=== PATIENT | female | born 1995 | race Caucasian/White ===

== ENCOUNTER 2023-04-02 08:00 | Outpatient (CLI) | payer OTHER ==
[2023-04-02 16:04] LABS: GLUCOSE, URINE (UA) NEGATIVE (NEGATIVE); KETONES,URINE (UA) NEGATIVE (NEGATIVE); LEUKOCYTE ESTERASE, URINE NEGATIVE (NEGATIVE); NITRITE,URINE NEGATIVE (NEGATIVE); OCCULT BLOOD,URINE TRACE-INTA (NEGATIVE); PH,URINE 5.5 PH (5.0-7.5); PROTEIN,URINE 30 mg/dL (NEGATIVE); UROBILINOGEN,URINE 1 (NORMAL) E.U./dL (NORMAL)
[2023-04-02 16:07] LABS: BILIRUBIN,URINE NEGATIVE (NEGATIVE); CLARITY,URINE CLOUDY (CLEAR); ICTOTEST,URINE NEGATIVE
[2023-04-02 16:25] LABS: AMORPHOUS SEDIMENT,UR Marked /LPF; BACTERIA,URINE None Seen /HPF (None Seen); RBC,URINE None Seen /HPF (0-5); SQUAMOUS EPITHELIAL CELL,UR RARE Squamous (<= Few); WBC,URINE 0-3 /HPF (0-5)
== END 2023-04-02 23:59 | disposition home or self-care (01) ==
LOC: LAB.WC 08:00
PROVIDERS: ATTEND Nurse Practitioner
DX: Z34.90 Encounter for supervision of normal pregnancy, unspecified, unspecified trimester (principal)
CPT/HCPCS: 81001; 87086

== ENCOUNTER 2023-04-19 12:26 | Outpatient (CLI) | payer OTHER ==
[2023-04-19 12:58] LABS: BASOPHILS # (AUTO) 0.1 10^3/uL (0.0-0.1); BASOPHILS % (AUTO) 0.5 %; EOSINOPHILS # (AUTO) 0.4 10^3/uL (0.0-0.7); EOSINOPHILS % (AUTO) 3.9 %; HCT - HEMATOCRIT 38.1 % (37.0-47.0); LYMPHOCYTES # (AUTO) 1.9 10^3/uL (1.5-3.5); LYMPHOCYTES % (AUTO) 18.5 %; MEAN CORPUSCULAR HGB CONC 34.1 g/dL (32.0-36.0); MEAN CORPUSCULAR VOLUME 84.9 fL (81.0-99.0); MEAN PLATELET VOLUME 12.4 fL (7.9-10.8); MONOCYTES # (AUTO) 0.5 10^3/uL (0.0-1.0); MONOCYTES % (AUTO) 4.7 %; NEUTROPHILS # (AUTO) 7.5 10^3/uL (1.5-6.6); PLT - PLATELET COUNT 179 10^3/uL (130-450); RED BLOOD COUNT 4.49 10^6/uL (4.20-5.40); RED CELL DISTRIBUTION WIDTH 12.7 % (12.0-15.0); WHITE BLOOD COUNT 10.5 x10^3/uL (4.8-10.8)
[2023-04-20 03:09] LABS: HCV AB Non Reactive (Non Reactive)
[2023-04-20 05:12] LABS: HIV SCREEN 4TH GENERATION Non Reactive (Non Reactive)
[2023-04-20 06:11] LABS: HBsAG SCREEN Negative (Negative); RPR Non Reactive (Non Reactive)
[2023-04-20 09:09] LABS: VARICELLA-ZOSTER AB IGG 3399 index (Immune >165)
== END 2023-04-19 12:27 | disposition home or self-care (01) ==
LOC: LAB 12:26
PROVIDERS: ATTEND Nurse Practitioner
DX: Z34.90 Encounter for supervision of normal pregnancy, unspecified, unspecified trimester (principal)
CPT/HCPCS: 36415; 85025; 86592; 86762; 86787; 86803; 86850; 86900; 86901; 87340; 87389

== ENCOUNTER 2023-04-21 08:00 | Outpatient (CLI) | payer OTHER ==
[2023-04-21 21:15] LABS: CHLAMYDIA TRACHOMATIS DNA NEGATIVE (NEGATIVE); NEISSERIA GONORRHOEAE DNA NEGATIVE (NEGATIVE); TRICHOMONAS VAGINALIS DNA NEGATIVE (NEGATIVE)
== END 2023-04-21 23:59 | disposition home or self-care (01) ==
LOC: LAB.WC 08:00
PROVIDERS: ATTEND Obstetrics & Gynecology
DX: Z11.3 Encounter for screening for infections with a predominantly sexual mode of transmission (principal)
CPT/HCPCS: 87491; 87591; 87661

== ENCOUNTER 2023-04-22 19:45 | Outpatient (CLI) | payer OTHER ==
--- NOTE | 2023-04-23 22:40 | Ultrasound Report ---
PROCEDURE: OB First Trimester w/TV INDICATIONS: POSITIVE TEST OUTSIDE/PRIOR DATING DATA: Last menstrual period (LMP): 02/02/2023. LMP-based estimated date of delivery (LIT): 11/09/2023. First dating scan (date and location): 04/22/2023. Estimated date of delivery (LIT) from first dating scan: 11/08/2023. TECHNIQUE: Real-time scanning was performed of the fetus and maternal pelvic organs, with image documentation. Endovaginal scanning was also performed to better visualize the fetus and maternal ovaries. COMPARISON: None. FINDINGS: There is a single living intrauterine gestation with estimated sonographic gestational age of approximately 11 weeks and 3 days based off crown-rump length measurement of approximately 4.6 cm . Embryo is visualized within the gestational sac as well as a normal yolk sac. Heart rate: 178 bpm. Other: No perigestational fluid collection. Measurement variability in dating: +/- 4 weeks by LMP, +/- 7 days by mean sac diameter (use before 6 weeks gestation if crown-rump length not able to be measured), +/- 5 days by crown-rump length (6-12 weeks gestation). Maternal organs: Ovaries appear within normal limits. Maternal cervix measures 3.1 cm in length. IMPRESSION: Single living intrauterine gestation with estimated sonographic gestational age of approximately 11 w eeks and 3 days based off crown-rump length measurement. Estimated date of delivery is approximately 11/08/2023 which measures concordantly with estimated date of delivery by last menstrual period of bethany roximately 11/09/2023. Recommend follow-up imaging with routine second trimester anatomy screening survey. Reviewed by: Krishna Ghosh MD on 04/23/2023 10:39 PM PDT Approved by: Krishna Ghosh MD on 04/23/2023 10:39 PM PDT Station ID: [id number]
== END 2023-04-22 19:46 | disposition home or self-care (01) ==
LOC: DI 19:45
PROVIDERS: ATTEND Nurse Practitioner
DX: Z34.91 Encounter for supervision of normal pregnancy, unspecified, first trimester (principal)

== ENCOUNTER 2023-05-19 08:00 | Outpatient (CLI) | payer OTHER ==
[2023-05-19 16:16] LABS: BILIRUBIN,URINE NEGATIVE (NEGATIVE); GLUCOSE, URINE (UA) NEGATIVE (NEGATIVE); KETONES,URINE (UA) NEGATIVE (NEGATIVE); LEUKOCYTE ESTERASE, URINE NEGATIVE (NEGATIVE); NITRITE,URINE NEGATIVE (NEGATIVE); OCCULT BLOOD,URINE NEGATIVE (NEGATIVE); PH,URINE 6.5 PH (5.0-7.5); PROTEIN,URINE NEGATIVE (NEGATIVE); UROBILINOGEN,URINE 0.2 (NORMAL) E.U./dL (NORMAL)
[2023-05-19 16:24] LABS: BACTERIA,URINE None Seen /HPF (None Seen); CLARITY,URINE CLEAR (CLEAR); RBC,URINE None Seen /HPF (0-5); SQUAMOUS EPITHELIAL CELL,UR NONE SEEN (<= Few); WBC,URINE 0-3 /HPF (0-5)
== END 2023-05-19 23:59 | disposition home or self-care (01) ==
LOC: LAB.WC 08:00
PROVIDERS: ATTEND Obstetrics & Gynecology
DX: R30.0 Dysuria (principal)
CPT/HCPCS: 81001; 87086

== ENCOUNTER 2023-06-25 14:52 | Outpatient (CLI) | payer OTHER ==
--- NOTE | 2023-06-27 09:30 | Ultrasound Report ---
PROCEDURE: OB Detailed Eval INDICATIONS: SUPERVISON OF HIGH RISK OUTSIDE/PRIOR DATING DATA: Last menstrual period (LMP): 02/02/2023. LMP-based estimated date of delivery (LIT): 11/09/2023. First dating scan (date and location): 04/22/2023. Estimated date of delivery (LIT) from first dating scan: 11/08/2023. The below data below was generated using the ultrasound LIT of 11/08/2023 TECHNIQUE: Real-time scanning was performed of the fetus, with image documentation and biometric measurements. Endovaginal scanning: Not performed COMPARISON: 04/22/2023 FINDINGS: General: A single living intrauterine gestation is present. Presentation: Breech Placenta: Placental position is posterior, without previa. Amniotic fluid index: 14.2 cm, within normal limits for gestational age. heart rate: 144 beats per minute. Maternal cervical canal: Within normal limits biometrics: Biparietal diameter: 4.4 cm, 19 weeks 3 days Head circumference: 17.6 cm, 20 weeks 1 day Abdominal circumference: 15.6 cm, 20 weeks 1 day Femur length: 3.4 cm, 20 weeks 6 days Estimated gestational age from initial scan: 20 weeks 3 days Composite gestational age from present scan: 19 weeks 6 days Estimated weight and percentile: 372 g, 61.4% Measurement variability in biometric dating: +/- 10 days from 12-20 weeks gestation, +/- 2 weeks from 20-30 weeks gestation, +/- 3 weeks at 30 weeks gestation or later. Anatomic survey: Neuro: Ventricles are normal at less than 10 mm. Cisterna magna is normal at 3-11 mm. Cerebellum i s normal in size and morphology. Nuchal skin fold: Normal at less than 6 mm between 14 and 20 weeks gestational age. Face: Nose and lips, facial profile are normal. Spine: No evidence for spina bifida. Heart: 4-chambered heart is present, with normal ventricular outflow tracts. Diaphragm: Diaphragm is intact. Stomach: Left-sided stomach is present. Kidneys: No hydronephrosis. Normal is less than 5 mm in 2nd trimester, less than 7 mm in 3rd trimester. Cord: 3 vessel cord has orthotopic insertion. Bladder: Normal in size. Extremities: All 4 extremities are visualized. IMPRESSION: 1. Living second trimester intrauterine with no sonographic evidence of complications. Curr ent ultrasound age is 4 days less than clinical age based on initial ultrasound. 2. Normal second trimester anatomy survey. Reviewed by: Osman Roberson MD on 06/27/2023 9:28 AM PDT Approved by: Osman Roberson MD on 06/27/2023 9:28 AM PDT Station ID: [id number]
== END 2023-06-25 14:53 | disposition home or self-care (01) ==
LOC: DI 14:52
PROVIDERS: ATTEND Obstetrics & Gynecology
DX: O09.92 Supervision of high risk pregnancy, unspecified, second trimester (principal); Z3A.19 19 weeks gestation of pregnancy

== ENCOUNTER 2023-07-09 08:00 | Outpatient (CLI) | payer OTHER | END 2023-07-09 23:59 | disposition home or self-care (01) | LOC: LAB.N 08:00 | PROVIDERS: ATTEND Physician Assistant Medical | DX: J02.9 Acute pharyngitis, unspecified (principal) | CPT/HCPCS: 87070 ==

== ENCOUNTER 2023-07-29 18:37 | Emergency (ER) | payer OTHER ==
[2023-07-29 18:45] VITALS: BP 121/74; O2SAT 99
--- NOTE | 2023-07-29 19:12 | ED Physician Documentation ---
History of Present Illness - Stated complaint Stated Complaint: L LEG NUMB - Chief complaint Chief Complaint: Ext Problem - Additonal information Additional information: 28-year-old female presents emergency department for evaluation of acute left leg cramping. She reports that yesterday evening she began to have a sensation of tightness in her posterior calf much like a charley horse however went away after a while. She had a similar sensation this morning and this afternoon after taking a nap. She reports that her leg felt numb. Patient is currently 25 weeks G2, P1. Last was complicated by preeclampsia and possibly mild help syndrome. Patient denies chest pain or shortness of air. She did have a long car travel recently. She has no leg swelling. Is being followed by Dr. Andres. Patient states she spoke to the on-call OB provider who advised her to come to the ER for ultrasound imaging Review of Systems Constitutional: denies: Fever, Chills Cardiac: reports: Reviewed and negative. denies: Pedal edema Respiratory: reports: Reviewed and negative Musculoskeletal: reports: Extremity pain Neurologic: reports: Reviewed and negative PD ED PE NORMAL - General General: Alert and oriented X 3, No acute distress, Well developed/nourished - HEENT HEENT: Atraumatic - Neck Neck: Supple, no meningeal sign - Cardiac Cardiac: RRR, No murmur - Respiratory Respiratory: No respiratory distress, Clear bilaterally - Abdomen Abdomen: Normal bowel sounds, Soft - Extremities Extremities: No edema. No: No calf tenderness / cord (Very mild left posterior calf pain tenderness with palpation. No swelling or erythema. No swelling of the ankles. 2+ DP pulse. 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 Eye Opening: Spontaneous Motor: Obeys Commands Verbal: Oriented GCS Score: 15 Results - Vitals Vitals: Vital Signs - 24 hr 07/29/23 18:38 Temperature 36.6 C Heart Rate 80 Respiratory 17 Rate Blood Pressure 121/74 O2 Saturation 99 Oxygen O2 Source Room air - Rads (name of study) US DVT left leg Relevant Findings:: Final report received (negative for DVT) PD Medical Decision Making - ED course Complexity details: reviewed results, d/w patient ED course: 28-year-old female here for evaluation of acute left leg cramping she noticed last night also reported some numbness in the leg when she woke up this morning. She is about 25 weeks being followed by our OB Dr. Andres. No chest pain or shortness of air. Here the emergency department she appears remarkably well. Vital signs were normal for without findings of hypertension. Her exam revealed no leg swelling or erythema or any findings consistent with infection. An ultrasound was completed that showed no evidence of DVT. Patient denies symptoms of cramping while here in the ER. She is discharged home in stable condition. Continue to follow-up with OB. Did recommend the use of Tylenol for any leg discomfort and consideration of warm compress should she develop symptoms again. Departure - Departure Disposition: Home, Self Care Clinical Impression: Cramps of left lower extremity Condition: Stable Record reviewed to determine appropriate education?: Yes Comments: Tamiko the ultrasound did not show any blood clots in your left leg. Some cramping can be very common in . It is advised that you stay well- hydrated. Drinking some soup or broth can often help. While here in the emergency department your vital signs were normal for . The baby had good movement and a heart rate of about 155. Continue to follow closely with your OB. Return to the ER for any new or worsening symptoms. Forms: PCP List
--- NOTE | 2023-07-29 20:44 | Ultrasound Report ---
PROCEDURE: Duplex Ext Veins Left INDICATIONS: numbness, calf pain; r/o dvt TECHNIQUE: Real-time imaging, as well as color and pulse Doppler interrogation, were performed of the lower extr emity deep veins from the inguinal ligament to the popliteal fossa. Attempted visualization of the ca lf veins was performed. COMPARISON: None. FINDINGS: The deep veins are normally compressible, and free of intraluminal thrombus. Color and pu lse Doppler demonstrate normal phasic intraluminal flow. There is normal augmentation response to di stal compression maneuver. heart rate 152 bpm. IMPRESSION: No lower extremity DVT. Reviewed by: Deuce Bates MD on 07/29/2023 8:43 PM PST Approved by: Deuce Bates MD on 07/29/2023 8:43 PM PST Station ID: [id number]
== END 2023-07-29 20:13 | disposition home or self-care (01) ==
LOC: ED 18:37
DX: O99.891 Other specified diseases and conditions complicating pregnancy (principal); R25.2 Cramp and spasm; Z3A.25 25 weeks gestation of pregnancy
CPT/HCPCS: 99283; 99284

== ENCOUNTER 2023-08-05 12:58 | Outpatient (CLI) | payer OTHER | END 2023-08-05 12:59 | disposition home or self-care (01) | LOC: LAB 12:58 | PROVIDERS: ATTEND Obstetrics & Gynecology | DX: O09.92 Supervision of high risk pregnancy, unspecified, second trimester (principal) | CPT/HCPCS: 36415; 82950 ==

== ENCOUNTER 2023-08-12 08:37 | Outpatient (CLI) | payer OTHER ==
[2023-08-12 09:11] LABS: GTT GLUCOSE,FASTING 85 mg/dL (74-109)
[2023-08-12 15:18] LABS: HCT - HEMATOCRIT 37.6 % (37.0-47.0); HGB - HEMOGLOBIN 12.5 g/dL (12.0-16.0); MEAN CORPUSCULAR HEMOGLOBIN 29.7 pg (27.0-31.0); MEAN CORPUSCULAR HGB CONC 33.2 g/dL (32.0-36.0); MEAN CORPUSCULAR VOLUME 89.3 fL (81.0-99.0); RED BLOOD COUNT 4.21 10^6/uL (4.20-5.40); RED CELL DISTRIBUTION WIDTH 13.1 % (12.0-15.0); WHITE BLOOD COUNT 16.5 x10^3/uL (4.8-10.8)
[2023-08-12 15:49] LABS: CREATININE,URINE 72.1 mg/dL; PROTEIN/CREATININE RATIO,URINE 0.2 (<=0.2)
== END 2023-08-12 08:38 | disposition home or self-care (01) ==
LOC: LAB 08:37
PROVIDERS: ATTEND Nurse Practitioner
DX: O99.810 Abnormal glucose complicating pregnancy (principal); O09.92 Supervision of high risk pregnancy, unspecified, second trimester
CPT/HCPCS: 36415; 82570; 82951; 82952; 84156; 85027

== ENCOUNTER 2023-09-09 08:00 | Outpatient (CLI) | payer OTHER ==
[2023-09-09 20:09] LABS: BACTERIAL VAGINOSIS DNA POSITIVE (NEGATIVE); CANDIDA GLABRATA DNA NEGATIVE (NEGATIVE); CANDIDA GROUP DNA NEGATIVE (NEGATIVE); CANDIDA KRUSEI DNA NEGATIVE (NEGATIVE); TRICHOMONAS VAGINALIS DNA NEGATIVE (NEGATIVE)
== END 2023-09-09 23:59 | disposition home or self-care (01) ==
LOC: LAB.WC 08:00
PROVIDERS: ATTEND Obstetrics & Gynecology
DX: N89.8 Other specified noninflammatory disorders of vagina (principal)
CPT/HCPCS: 81514

== ENCOUNTER 2023-09-20 15:20 | Outpatient (CLI) | payer OTHER ==
[2023-09-20 15:52] LABS: HCT - HEMATOCRIT 38.7 % (37.0-47.0); HGB - HEMOGLOBIN 12.7 g/dL (12.0-16.0); MEAN CORPUSCULAR HEMOGLOBIN 28.9 pg (27.0-31.0); MEAN CORPUSCULAR HGB CONC 32.8 g/dL (32.0-36.0); MEAN CORPUSCULAR VOLUME 88.2 fL (81.0-99.0); MEAN PLATELET VOLUME 13.3 fL (7.9-10.8); RED BLOOD COUNT 4.39 10^6/uL (4.20-5.40); RED CELL DISTRIBUTION WIDTH 12.9 % (12.0-15.0)
[2023-09-20 17:28] LABS: CREATININE,URINE 131.7 mg/dL; PROTEIN/CREATININE RATIO,URINE 0.1 (<=0.2)
== END 2023-09-20 15:21 | disposition home or self-care (01) ==
LOC: LAB 15:20
PROVIDERS: ATTEND Obstetrics & Gynecology
DX: O09.893 Supervision of other high risk pregnancies, third trimester (principal); Z87.59 Personal history of other complications of pregnancy, childbirth and the puerperium
CPT/HCPCS: 36415; 82570; 84156; 85027

== ENCOUNTER 2023-09-22 18:27 | Outpatient (CLI) | payer OTHER ==
--- NOTE | 2023-09-23 11:23 | Ultrasound Report ---
PROCEDURE: OB Follow up INDICATIONS: POOR GROWTH OUTSIDE/PRIOR DATING DATA: Last menstrual period (LMP): 02/02/2023. LMP-based estimated date of delivery (LIT): 11/09/2023. First dating scan (date and location): 04/22/2023. [facility]. Estimated date of delivery (LIT) from first dating scan: 11/08/2023. The below data below was generated using the ultrasound LIT of 11/08/2023 TECHNIQUE: Real-time scanning was performed of the fetus, with image documentation and biometric measurements. Endovaginal scanning: Not performed. COMPARISON: OB ultrasound on July 29, 2023 FINDINGS: General: A single living intrauterine gestation is present. Presentation: Vertex Placenta: Placental position is posterior, without previa. Amniotic fluid index: 12.5 cm, within normal limits for gestational age. heart rate: 137 beats per minute. Maternal cervical canal: 3.7 cm long; normal length is 2.5 cm or more. biometrics: Biparietal diameter: 8.1 cm, 32 weeks and 4 days, 23.3% Head circumference: 31.3 cm, 35 weeks and 1 day, 61.6% Abdominal circumference: 29.45 cm, 33 weeks and 3 days, 56.5% Femur length: 6.37 cm, 32 weeks and 6 days, 28.9% Estimated gestational age from initial scan: 33 weeks and 2 days Composite gestational age from present scan: 33 weeks and 4 days Estimated weight and percentile: 2180.5 g, 44% Measurement variability in biometric dating: +/- 10 days from 12-20 weeks gestation, +/- 2 weeks from 20-30 weeks gestation, +/- 3 weeks at 30 weeks gestation or more. Other: Bilateral ovaries are unremarkable. IMPRESSION: 1.Single living intrauterine gestation in vertex presentation. Estimated gestational age from today's scan is 33 weeks and 4 days. 2.Estimated weight is at 44th percentile. 3.REY is 12.5 cm. Reviewed by: Radha Ledesma MD on 09/23/2023 11:22 AM PST Approved by: Radha Ledesma MD on 09/23/2023 11:22 AM PST Station ID: [id number]
== END 2023-09-22 18:28 | disposition home or self-care (01) ==
LOC: DI 18:27
PROVIDERS: ATTEND Obstetrics & Gynecology
DX: O36.5930 Maternal care for other known or suspected poor fetal growth, third trimester, not applicable or unspecified (principal); O09.893 Supervision of other high risk pregnancies, third trimester; Z3A.33 33 weeks gestation of pregnancy

== ENCOUNTER 2023-10-06 11:22 | Outpatient (CLI) | payer OTHER ==
[2023-10-06 11:34] LABS: HCT - HEMATOCRIT 38.4 % (37.0-47.0); HGB - HEMOGLOBIN 12.8 g/dL (12.0-16.0); MEAN CORPUSCULAR HEMOGLOBIN 29.2 pg (27.0-31.0); MEAN CORPUSCULAR HGB CONC 33.3 g/dL (32.0-36.0); MEAN CORPUSCULAR VOLUME 87.7 fL (81.0-99.0); MEAN PLATELET VOLUME 13.4 fL (7.9-10.8); RED BLOOD COUNT 4.38 10^6/uL (4.20-5.40); RED CELL DISTRIBUTION WIDTH 12.5 % (12.0-15.0); WHITE BLOOD COUNT 17.4 x10^3/uL (4.8-10.8)
[2023-10-06 11:45] LABS: CREATININE,URINE 246.8 mg/dL; PROTEIN/CREATININE RATIO,URINE 0.1 (<=0.2)
[2023-10-06 11:45] LABS: ALBUMIN 3.6 g/dL (3.2-5.5); ALBUMIN/GLOBULIN RATIO 1.2 (1.0-2.2); BILIRUBIN,TOTAL 0.4 mg/dL (0.2-1.0); CREATININE 0.6 mg/dL (0.6-1.3); TOTAL PROTEIN 6.5 g/dL (6.4-8.9)
== END 2023-10-06 11:23 | disposition home or self-care (01) ==
LOC: LAB 11:22
PROVIDERS: ATTEND Nurse Practitioner
DX: Z87.59 Personal history of other complications of pregnancy, childbirth and the puerperium (principal)
CPT/HCPCS: 36415; 80053; 82570; 84156; 85027

== ENCOUNTER 2023-10-12 08:00 | Outpatient (CLI) | payer OTHER ==
[2023-10-12 17:12] LABS: PROTEIN/CREATININE RATIO,URINE 0.2 (<=0.2)
== END 2023-10-12 23:59 | disposition home or self-care (01) ==
LOC: LAB.WC 08:00
PROVIDERS: ATTEND Nurse Practitioner
DX: O09.893 Supervision of other high risk pregnancies, third trimester (principal); Z87.59 Personal history of other complications of pregnancy, childbirth and the puerperium; Z36.85 Encounter for antenatal screening for Streptococcus B
CPT/HCPCS: 36415; 82570; 84156; 85025; 87081; 87797

== ENCOUNTER 2023-10-12 10:55 | Outpatient (CLI) | payer OTHER ==
[2023-10-12 11:10] LABS: BASOPHILS # (AUTO) 0.1 10^3/uL (0.0-0.1); BASOPHILS % (AUTO) 0.3 %; EOSINOPHILS # (AUTO) 0.1 10^3/uL (0.0-0.7); EOSINOPHILS % (AUTO) 0.8 %; HCT - HEMATOCRIT 38.2 % (37.0-47.0); HGB - HEMOGLOBIN 12.4 g/dL (12.0-16.0); LYMPHOCYTES # (AUTO) 1.9 10^3/uL (1.5-3.5); LYMPHOCYTES % (AUTO) 12.6 %; MEAN CORPUSCULAR HEMOGLOBIN 28.6 pg (27.0-31.0); MEAN CORPUSCULAR HGB CONC 32.5 g/dL (32.0-36.0); MEAN PLATELET VOLUME 13.3 fL (7.9-10.8); MONOCYTES # (AUTO) 0.6 10^3/uL (0.0-1.0); MONOCYTES % (AUTO) 4.1 %; NEUTROPHILS # (AUTO) 12.2 10^3/uL (1.5-6.6); NEUTROPHILS % (AUTO) 81.5 %; PLT - PLATELET COUNT 119 10^3/uL (130-450); RED BLOOD COUNT 4.34 10^6/uL (4.20-5.40); RED CELL DISTRIBUTION WIDTH 12.8 % (12.0-15.0)
[2023-10-12 11:42] LABS: DIFFERENTIAL COMMENT MANUAL=AUTO DIFF; PLATELET ESTIMATE, MANUAL DECREASED (<130,000) (NORMAL); PLATELET MORPHOLOGY NORMAL APPEARANCE (NORMAL); RBC MORPHOLOGY (MULTIPLE) NORMAL APPEARANCE (NORMAL)
== END 2023-10-12 10:56 | disposition home or self-care (01) ==
LOC: LAB 10:55
PROVIDERS: ATTEND Nurse Practitioner
DX: O09.893 Supervision of other high risk pregnancies, third trimester (principal); Z87.59 Personal history of other complications of pregnancy, childbirth and the puerperium; Z36.85 Encounter for antenatal screening for Streptococcus B
CPT/HCPCS: 36415; 85025; 87081; 87797

== ENCOUNTER 2023-10-15 10:04 | Outpatient (CLI) | payer OTHER ==
[2023-10-15 10:38] VITALS: BP 122/86
--- NOTE | 2023-10-17 14:34 | PROCEDURE REPORT ---
- HPI Diagnosis/Indication for NST: Intrauterine growth restriction (suspected) Current EDU 11/09/23 Gestation 36 Weeks and 3 Days 2 Para 1 Vital Signs Temperature 98.2 F 10/15/23 10:33 Heart Rate 93 10/15/23 10:33 Respiratory Rate 16 10/15/23 10:33 Blood Pressure 122/86 H 10/15/23 10:33 Temperature 98.2 F 10/15/23 10:33 Heart Rate 93 10/15/23 10:33 Respiratory Rate 16 10/15/23 10:33 Blood Pressure 122/86 H 10/15/23 10:33 O2 Saturation If not protocol: Oxygen Flow, liters/minute - NST Procedure NST Procedure Start Date 10/15/23 Start Time 10:17 Stop Time 10:40 Vibroacoustic Stimulation Used No Patient States Movement Yes 36 weeks. here for first nst for concerns with growth. NST reviewed in real time. baseline normal. moderate variability. + acels and no decels. - Results and Plan Findings/Impression: reactive nst. Plan: as previously scheduled.
== END 2023-10-15 11:08 | disposition home or self-care (01) ==
LOC: WFO 10:04 → FBP 10:18 → WFO 11:08
PROVIDERS: ATTEND Obstetrics & Gynecology
DX: O36.5930 Maternal care for other known or suspected poor fetal growth, third trimester, not applicable or unspecified (principal); O09.893 Supervision of other high risk pregnancies, third trimester; Z87.59 Personal history of other complications of pregnancy, childbirth and the puerperium; Z3A.36 36 weeks gestation of pregnancy
CPT/HCPCS: 59025

== ENCOUNTER 2023-10-15 11:40 | Outpatient (CLI) | payer OTHER ==
--- NOTE | 2023-10-15 14:39 | Ultrasound Report ---
PROCEDURE: OB Follow up INDICATIONS: HX OF PREEECLAMPSIA OUTSIDE/PRIOR DATING DATA: Last menstrual period (LMP): 02/02/2023. LMP-based estimated date of delivery (LIT): 11/09/2023. First dating scan (date and location): [facility]/2023, [facility] Estimated date of delivery (LIT) from first dating scan: 11/08/2023. TECHNIQUE: Real-time scanning was performed of the fetus, with image documentation and biometric measurements. Endovaginal scanning: Not performed. COMPARISON: None. FINDINGS: General: A single living intrauterine gestation is present. Presentation: Vertex Placenta: Placental position is posterior, without previa. Amniotic fluid index: 12.5 cm, within normal limits for gestational age. heart rate: 137 beats per minute. Maternal cervical canal: 3.7 cm long; normal length is 2.5 cm or more. biometrics: Biparietal diameter: 8.1 cm, 32 weeks 4 days, 23.3% Head circumference: 31.33 cm, 35 weeks 1 day, 61.1% Abdominal circumference: 29.5 cm, 33 weeks, 3 days, 56.5% Femur length: 6.37 cm, 32 weeks 6 days, 28.9% Estimated gestational age from initial scan: 33 weeks 2 days Composite gestational age from present scan: 33 weeks 4 days Estimated weight and percentile: 2180.5 g, 44% Measurement variability in biometric dating: +/- 10 days from 12-20 weeks gestation, +/- 2 weeks from 20-30 weeks gestation, +/- 3 weeks at 30 weeks gestation or more. Other: Not applicable. IMPRESSION: 1. Single live intrauterine gestation with a composite gestational age of 33 weeks, 4 days which is c oncordant with dates by initial scan. 2. Appropriate growth with estimated weight percentile 44%. Reviewed by: Alyssa Doyle MD on 10/15/2023 2:38 PM PST Approved by: Alyssa Doyle MD on 10/15/2023 2:38 PM PST Station ID: [id number]
== END 2023-10-15 11:41 | disposition home or self-care (01) ==
LOC: DI 11:40
PROVIDERS: ATTEND Nurse Practitioner
DX: Z87.59 Personal history of other complications of pregnancy, childbirth and the puerperium (principal)

== ENCOUNTER 2023-10-19 12:07 | Outpatient (CLI) | payer OTHER ==
[2023-10-19 12:30] LABS: BASOPHILS % (AUTO) 0.3 %; EOSINOPHILS % (AUTO) 0.7 %; HCT - HEMATOCRIT 39.3 % (37.0-47.0); HGB - HEMOGLOBIN 12.8 g/dL (12.0-16.0); LYMPHOCYTES % (AUTO) 13.8 %; MEAN CORPUSCULAR HEMOGLOBIN 28.6 pg (27.0-31.0); MEAN CORPUSCULAR HGB CONC 32.6 g/dL (32.0-36.0); MEAN CORPUSCULAR VOLUME 87.7 fL (81.0-99.0); MEAN PLATELET VOLUME 13.6 fL (7.9-10.8); MONOCYTES % (AUTO) 4.1 %; NEUTROPHILS % (AUTO) 80.5 %; PLT - PLATELET COUNT 120 10^3/uL (130-450); RED BLOOD COUNT 4.48 10^6/uL (4.20-5.40); WHITE BLOOD COUNT 15.7 x10^3/uL (4.8-10.8)
[2023-10-19 12:35] LABS: ABNORMAL LYMPHS % (MANUAL) 0 %
[2023-10-19 13:28] LABS: BAND NEUTROPHILS % (MANUAL) 3 %; DIFFERENTIAL COMMENT MANUAL DIFFERENTIAL; EOSINOPHILS # (MANUAL) 0.2 10^3/uL (0-0.7); LYMPHOCYTES # (MANUAL) 2.4 10^3/uL (1.5-3.5); LYMPHOCYTES % (MANUAL) 11 %; MONOCYTES # (MANUAL) 0.5 10^3/uL (0.0-1.0); NEUTROPHILS # (MANUAL) 12.7 10^3/uL (1.5-6.6); REACTIVE LYMPHS % (MANUAL) 4 %
== END 2023-10-19 12:08 | disposition home or self-care (01) ==
LOC: LAB 12:07
PROVIDERS: ATTEND Nurse Practitioner
DX: Z87.59 Personal history of other complications of pregnancy, childbirth and the puerperium (principal)
CPT/HCPCS: 36415; 85025

== ENCOUNTER 2023-10-20 09:58 | Outpatient (CLI) | payer OTHER ==
[2023-10-20 10:16] VITALS: BP 131/80
--- NOTE | 2023-10-20 15:13 | PROCEDURE REPORT ---
- HPI Diagnosis/Indication for NST: Intrauterine growth restriction Current EDU 11/09/23 Gestation 37 Weeks and 1 Days 2 Para 1 Vital Signs Temperature 98.1 F 10/20/23 10:09 Heart Rate 90 10/20/23 10:09 Respiratory Rate 14 10/20/23 10:09 Blood Pressure 131/80 H 10/20/23 10:09 Temperature 98.1 F 10/20/23 10:09 Heart Rate 90 10/20/23 10:09 Respiratory Rate 14 10/20/23 10:09 Blood Pressure 131/80 H 10/20/23 10:09 O2 Saturation If not protocol: Oxygen Flow, liters/minute - NST Procedure NST Procedure Start Date 10/20/23 Start Time 10:03 Stop Time 10:44 Vibroacoustic Stimulation Used No NSt reviewed in real time. normal baseline. moderate variability. + acels. no decels. - Results and Plan Findings/Impression: reactive NST Plan: as scheduled.
== END 2023-10-20 10:50 | disposition home or self-care (01) ==
LOC: WFO 09:58 → FBP 10:00 → WFO 10:50
PROVIDERS: ATTEND Obstetrics & Gynecology
DX: O36.5930 Maternal care for other known or suspected poor fetal growth, third trimester, not applicable or unspecified (principal); O09.893 Supervision of other high risk pregnancies, third trimester; Z3A.37 37 weeks gestation of pregnancy
CPT/HCPCS: 59025

== ENCOUNTER 2023-10-22 12:36 | Outpatient (CLI) | payer OTHER ==
[2023-10-22 13:15] LABS: BASOPHILS # (AUTO) 0.1 10^3/uL (0.0-0.1); BASOPHILS % (AUTO) 0.3 %; EOSINOPHILS # (AUTO) 0.1 10^3/uL (0.0-0.7); EOSINOPHILS % (AUTO) 0.8 %; HCT - HEMATOCRIT 37.7 % (37.0-47.0); HGB - HEMOGLOBIN 12.4 g/dL (12.0-16.0); LYMPHOCYTES # (AUTO) 2.1 10^3/uL (1.5-3.5); LYMPHOCYTES % (AUTO) 14.3 %; MEAN CORPUSCULAR HEMOGLOBIN 28.9 pg (27.0-31.0); MEAN CORPUSCULAR HGB CONC 32.9 g/dL (32.0-36.0); MEAN CORPUSCULAR VOLUME 87.9 fL (81.0-99.0); MEAN PLATELET VOLUME 13.6 fL (7.9-10.8); MONOCYTES # (AUTO) 0.7 10^3/uL (0.0-1.0); MONOCYTES % (AUTO) 4.5 %; NEUTROPHILS # (AUTO) 11.6 10^3/uL (1.5-6.6); NEUTROPHILS % (AUTO) 79.6 %; PLT - PLATELET COUNT 121 10^3/uL (130-450); RED BLOOD COUNT 4.29 10^6/uL (4.20-5.40); RED CELL DISTRIBUTION WIDTH 13.1 % (12.0-15.0); WHITE BLOOD COUNT 14.6 x10^3/uL (4.8-10.8)
--- NOTE | 2023-10-23 09:10 | Ultrasound Report ---
PROCEDURE: OB Limited INDICATIONS: HX OF PREECLAMPSIA OUTSIDE/PRIOR DATING DATA: Last menstrual period (LMP): 02/02/2023. LMP-based estimated date of delivery (LIT): 11/09/2023. First dating scan (date and location): [facility]/2023[facility]. Estimated date of delivery (LIT) from first dating scan: 11/08/2023. TECHNIQUE: Real-time scanning was performed of the fetus, with image documentation. COMPARISON: OB ultrasound, 10/15/2023. FINDINGS: A single living intrauterine gestation is present. Presentation: Cephalic Placenta: Placental position is posterior frontal, without previa. Amniotic fluid index: 10.9 cm; largest pocket 3.6 cm. heart rate: 143 beats per minutes. Maternal cervical canal: Closed measuring 3.8 cm long; normal length is 2.5 cm or more. Estimated gestational age from initial scan: 37 weeks 4 days. IMPRESSION: 1. A single living IUP redemonstrated. 2. REY 10.9 cm. Reviewed by: Luis Mitchell MD on 10/23/2023 9:08 AM PST Approved by: Luis Mitchell MD on 10/23/2023 9:08 AM PST Station ID: [id number]
== END 2023-10-22 12:37 | disposition home or self-care (01) ==
LOC: DI 12:36
PROVIDERS: ATTEND Nurse Practitioner
DX: Z87.59 Personal history of other complications of pregnancy, childbirth and the puerperium (principal)
CPT/HCPCS: 36415; 85025